=== PATIENT | female | born 1980 | race Caucasian/White ===

== ENCOUNTER 2022-06-17 11:00 | Outpatient (CLI) | payer MEDICAID, SELFPAY ==
--- NOTE | 2022-06-17 11:00 | MR_ITS ---
WS: [id number] MRI BRAIN WITHOUT CONTRAST HISTORY: Hx of recent stroke, right-sided weakness and slurred speech. COMPARISON: None available. TECHNIQUE: Diffusion imaging, multiplanar T1, T2 and FLAIR imaging obtained. There is a very tiny subtle diffusion-weighted abnormality noted in the RIGHT frontal centrum semiova le. This may be a very tiny lacunar infarct. There is an additional subacute to remote infarct involv ing the RIGHT leung radiata. Diffusion weighted images have returned to near normal and there is inc reased T2 and ADC map signal. No associated hemorrhage. Additional small vessel ischemic changes are noted throughout the LEFT cerebrum. Prior lacunar infarc ts in the RIGHT basal ganglia. No hemorrhage. Bilateral small vessel ischemic disease in the pooja. Ventricles are normal size. No inferior displacement of cerebellar tonsils. The sella turcica and pituitary gland are unremarkabl e. Dural venous sinuses and [place] demonstrate no abnormality on this unenhanced studies. Paranasal sinuses: Mild mucoperiosteal thickening throughout the sinuses. No air-fluid levels. Mastoid air cells: Normal. Calvarium and scalp: Intact. MR/MR head wo con* [id number] IMPRESSION: 1. Suspect a very tiny RIGHT frontal centrum semiovale ovale infarct. No mass effect or hemorrhage. 2. Subacute to remote infarct in the RIGHT leung radiata. 3. Prior bilateral lacunar infarcts and small vessel ischemic disease, slightl y greater distribution on the LEFT. 4. Small vessel ischemic disease bilaterally in the pooja.
== END 2022-06-17 11:01 | disposition home or self-care (01) ==
LOC: RAD 11:01
PROVIDERS: PCP Family Medicine Adult Medicine; Visit Provider Family Medicine Adult Medicine
DX: Z86.73 Personal history of transient ischemic attack (TIA), and cerebral infarction without residual deficits (principal)
CPT/HCPCS: 70551

== ENCOUNTER 2022-10-06 11:30 | Outpatient (CLI) | payer MEDICAID, SELFPAY ==
--- NOTE | 2022-10-06 11:45 | MR_ITS ---
WS: [id number] MRA HEAD TECHNIQUE: Axial 3-D TOF images obtained with axial images and axial, sagittal, and coronal 2-D refor matted images. CLINICAL INFORMATION: Z86.73 - Personal history of transient ischemic attack (T... COMPARISON: MRI June 17, 2022 FINDINGS: Mild to moderate irregularity of the 2nd and 3rd order TYRON and MCA intracranial branches argueta spicious for vasculitis. Mild to moderate irregularity involving the WOOD SCIENCE PROFESSOR territory including the prox imal P1 segments. Recommend correlation with laboratory markers and clinical history. Both vertebral arteries are patent. Basilar artery is patent. Normal vascularity to the WOOD SCIENCE PROFESSOR territory bilaterally. Both ICAs are patent at the skull base. Normal vascularity to the TYRON and MCA territories bilaterally . No evidence of flow-limiting stenosis or aneurysm. MR/MR angio head wo con [id number] IMPRESSION: Some images degraded by motion. 1. 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 Recommend correlation with laborator y markers and clinical history. This also involves the proximal and distal WOOD SCIENCE PROFESSOR territory. 2. No evidence of proximal flow limiting stenosis.
== END 2022-10-06 11:31 | disposition home or self-care (01) ==
LOC: RAD 11:31
PROVIDERS: Visit Provider Specialist
DX: Z86.73 Personal history of transient ischemic attack (TIA), and cerebral infarction without residual deficits (principal); R93.0 Abnormal findings on diagnostic imaging of skull and head, not elsewhere classified
CPT/HCPCS: 70544

== ENCOUNTER → 2024-09-21 10:20 | Outpatient (BNVA) | payer MEDICAID, SELFPAY | PROVIDERS: PCP Nurse Practitioner Family; Referring Provider Nurse Practitioner Family; Visit Provider Internal Medicine Cardiovascular Disease | DX: R07.9 Chest pain, unspecified (principal) | CPT/HCPCS: 93005 ==

== ENCOUNTER 2024-10-24 09:30 | Outpatient (CLI) | payer MEDICAID, SELFPAY ==
--- NOTE | 2024-10-24 09:33 | USCV_ITS ---
Nya Millan Age: 44 Gender: F : 1980 Exam Date: 10/24/2024 09:41 Ordering Phys: Cleveland García MD ([email or web address]) Technologist: CT Exam Location: [facility] [place] Indication: Risk Factors: Previous Vascular Surgery: Right Brachial BP: / Left Brachial BP: / Right Left Velocity (cm/s) Spectral Plaque Velocity (cm/s) Spectral Plaque Syst/Diast Broadening Syst/Diast Broadening 82.50/ 34.60 Prox CCA 74.80 / 22.80 90.60/ 31.30 Mid CCA 82.80 / 31.30 90.60/ 36.90 Distal CCA 69.50 / 33.00 56.30/ 19.80 Prox ICA 51.40 / 22.60 84.00/ 27.90 Mid ICA 52.70 / 22.00 80.60/ 36.70 Distal ICA 68.70 / 35.10 79.50 ECA 72.60 0.90 ICA/CCA 1.00 Antegrade Vertebral Antegrade 44.60/ 17.10 cm/s 46.10/ 20.00 cm/s Tri Subclavian Tri 70.10 90.60 FINDINGS Minimal plaques at the bifurcations bilaterally Minimal thickening in the common carotid and internal carotid arteries bilaterally Antegrade flow in the vertebral arteries bilaterally Normal Doppler velocities in the subclavian, external carotid and vertebral arteries bilaterally CONCLUSIONS Minimal plaques at the bifurcations bilaterally, suggesting less than 50% stenosis No significant stenosis in the vertebral, subclavian and external carotid arteries bilaterally based on the above findings Dr Cleveland García MD [facility] WITH [facility] (Electronically Signed) Final Date: 24 October 2024 19:32 S
== END 2024-10-24 09:31 | disposition home or self-care (01) ==
PROVIDERS: PCP Family Medicine; Visit Provider Internal Medicine Cardiovascular Disease
DX: I69.30 Unspecified sequelae of cerebral infarction (principal)
CPT/HCPCS: 93880